=== PATIENT | female | born 1940 | race Caucasian/White ===

== ENCOUNTER 2016-06-05 12:04 | Observation (INO) | payer SELFPAY ==
[~2016-06-05] VITALS: Ht 157.5 cm; Wt 106.1 kg
[2016-06-05] MEDS ORDERED: SODIUM CHLORIDE 0.9% 1,000 ML ONE (13:22)
[2016-06-05] MEDS ORDERED: CALCIUM CHLORIDE 100 MG/ML SYR ONE (13:22)
[2016-06-05] MEDS ORDERED: SOD CHLOR 0.9% IV ONE (13:30)
[2016-06-05] MEDS ORDERED: [UNRECOGNIZED DRUG - OTHER] IV ONE (13:30)
[2016-06-05] MEDS ORDERED: KAYEXOLATE 15 GM/60 ML BTL ONE (14:51)
[2016-06-05] MEDS ORDERED: MAG HYDROX 30 ML UDC PO PRN (15:20)
[2016-06-05] MEDS ORDERED: BISACODYL EC 5 MG TAB PO PRN (15:20)
[2016-06-05] MEDS ORDERED: ONDANSETRON 4 MG VIAL IV PRN (15:20)
[2016-06-05] MEDS ORDERED: SODIUM CHLORIDE 0.9% 1,000 ML IV SCH (15:20)
[2016-06-05] MEDS ORDERED: SALINE FLUSH 10 ML FLUSH PRN (15:20)
[2016-06-05] MEDS ORDERED: ALU/MAG/SIM 30 ML UDC PO PRN (15:20)
[2016-06-05] MEDS ORDERED: Furosemide 40 MG/4 ML VIAL IV ONE (15:20)
[2016-06-05] MEDS ORDERED: BISACODYL 10 MG SUPP RECTAL PRN (15:20)
[2016-06-05] MEDS ORDERED: Furosemide 40 MG/4 ML VIAL ONE (16:47)
[2016-06-05 17:47] VITALS: BP_SYST 137; RESP 18; TEMP 98.1
[2016-06-05 17:51] VITALS: Ht 157.5 cm; Wt 106.1 kg
[2016-06-05] MEDS: SALINE FLUSH 10 ML FLUSH SCH ×2 (20:00→21:16)
[2016-06-05] MEDS: SODIUM CHLORIDE 0.9% FLUSH BAG 500 ML IV SCH (20:00)
[2016-06-05 23:31] VITALS: BP_SYST 138; RESP 18; TEMP 97.9
[2016-06-06 03:14] VITALS: BP_SYST 136; RESP 18; TEMP 98.2
[2016-06-06] MEDS: SODIUM CHLORIDE 0.9% FLUSH BAG 500 ML IV SCH (05:25)
[2016-06-06] MEDS ORDERED: Furosemide 40 MG/4 ML VIAL IV ONE (08:40)
[2016-06-06] MEDS ORDERED: SODIUM CHLORIDE 0.9% 1,000 ML IV SCH (08:40)
[2016-06-06] MEDS ORDERED: TRAMADOL 50 MG TAB PO PRN (08:40)
[2016-06-06] MEDS ORDERED: METOPROLOL TART 25 MG TAB PO SCH (09:00)
[2016-06-06 09:03] VITALS: BP_SYST 148; RESP 16; TEMP 97.6
[2016-06-06 11:56] VITALS: BP_SYST 134; RESP 16; TEMP 97.4
[2016-06-06 16:05] VITALS: BP_SYST 130; RESP 18; TEMP 97.7
[2016-06-06 19:04] VITALS: BP_SYST 130; RESP 18; TEMP 97.7
== END 2016-06-06 18:12 | disposition home or self-care (01) ==
LOC: ENRESERVDT → ENRESERVTM → ER 12:04 → EMR 15:17 → ENPENDDIS 15:17 → PCU 17:38
PROVIDERS: ADMIT Family Medicine; ATTEND Family Medicine
DX: N17.9 Acute kidney failure, unspecified (principal); E87.5 Hyperkalemia; M10.9 Gout, unspecified; E11.9 Type 2 diabetes mellitus without complications; Z79.84 Long term (current) use of oral hypoglycemic drugs; Z79.01 Long term (current) use of anticoagulants
CPT/HCPCS: 36415; 80047; 80048; 84132; 85014; 85025; 85610; 85730; 93005; 93306; 96361; 96365; 96375